=== PATIENT | female | born 1990 | race Two or more races ===

== ENCOUNTER 2017-06-30 18:37 | Emergency (ER) | payer OTHER ==
[~2017-06-30] VITALS: Ht 152.4 cm; Wt 69.4 kg
--- NOTE | 2017-06-30 18:53 | Emergency Room Report ---
History of Present Illness General Chief Complaint: Constipation Source: Patient Present Illness HPI 27-year-old female patient presents ER complaining of constipation 1 week. Patient reports a history of constipation. Patient reports she is not taking any medication for the treatment of constipation at this time. Reports last bowel movement was today, states that it was "small and not a lot of stool" was present. Also complains of intermittent bright red blood on her stool with straining. Reports no blood on bowel movement today. Reports she has never been diagnosed with hemorrhoids. Denies other acute symptoms. Denies fever, chest pain, shortness of breath, diarrhea, dysuria, hematuria. Patient denies recent weight loss, fever. Allergies: Coded Allergies: No Known Allergies (Unverified , 06/30/17) Patient History Past Medical History: see triage record Last Menstrual Period: 01/02 Reviewed Nursing Documentation: PMH: Agreed; PSxH: Agreed Nursing Documentation-PMH Past Medical History: No History, Except For Review of Systems All Other Systems: negative except mentioned in HPI Physical Exam Vital Signs Date Time Temp Pulse Resp B/P (MAP) Pulse Ox O2 Delivery O2 Flow Rate FiO2 06/30/17 18:41 98.8 96 18 144/90 98 Room Air 98.8 Sp02 EP Interpretation: reviewed, normal General Appearance: well appearing, no apparent distress, alert, GCS 15, non- toxic Head: normocephalic, atraumatic Eyes: bilateral eye normal inspection, bilateral eye PERRL ENT: hearing grossly normal, normal pharynx, no angioedema, normal voice, uvula midline, moist mucus membranes Neck: full range of motion Respiratory: lungs clear, normal breath sounds, no rhonchi, no respiratory distress, no accessory muscle use, no wheezing, speaking full sentences Cardiovascular #1: regular rate, rhythm, no edema Rectal: other - no hemorrhoids, no anal fissure Genitourinary: no CVA tenderness Musculoskeletal: back normal, digits/nails normal, gait/station normal, normal range of motion, non-tender Neurologic: alert, oriented x3, responsive, motor strength/tone normal, sensory intact Psychiatric: mood/affect normal Medical Decision Making PA Attestation Dr. Esposito is my supervising Physician whom patient management has been discussed with. Diagnostic Impression: Primary Impression: Constipation ER Course Pt presents to ED c/o generalized abdominal pain. DDX considered but are not limited to cystitis, pyelonephritis, constipation. Low suspicion for appendicitis, no TTP at McBurney's point, negative Rovsing sign. VITAL SIGNS are WNL, patient is afebrile. ED INTERVENTIONS: Acetaminophen for pain. ER COURSE PE benign, no tenderness to palpation, does not require imaging at this time. Patient denies dysuria, hematuria, low suspicion for UTI, does not require UA at this time. No visible hemorrhoids or anal fissure. Patient instructed to drink plenty of fluids, high-fiber diet. Will provide treatment for patient for constipation. follow-up with primary care provider and discuss referral to GI as needed. Discuss further imaging at that time to rule out underlying pathology. Patient is resting comfortably in chair, nontoxic appearing, in no acute distress. DISCHARGE: -Rx provided for Lactulose -Rx Provided for Tylenol Will provide with patient care instructions and any necessary prescriptions. Patient understands and agrees to treatment plan. Patient encouraged to drink plenty of fluids. Patient to take medication as instructed. Care plan and follow-up instructions provided. Patient questions asked and answered. Patient instructed to follow-up with waste management recycling technician in 3 - 5 days. ER precautions given. Patient instructed to return to ER immediately for any new or worsening of symptoms. Including but not limited to fever, worsening pain , intractable vomiting. - Please note that this Emergency Department Report was dictated using [employer] worker apprentice technology software, occasionally this can lead to erroneous entry secondary to interpretation by the dictation equipment. Last Vital Signs Date Time Temp Pulse Resp B/P (MAP) Pulse Ox O2 Delivery O2 Flow Rate FiO2 06/30/17 18:41 98.8 96 18 144/90 98 Room Air 98.8 Disposition: HOME, SELF-CARE Condition: Stable Scripts Acetaminophen* (TYLENOL EXTRA STRENGTH*) 500 Mg Tablet 500 MG ORAL Q8H PRN for Prn Headache/Temp > 101, #30 TAB 0 Refills Prov: Palomo Chiang.Kerri 06/30/17 Lactulose (LACTULOSE) 10 Gm/15 Ml Solution 10 GM PO DAILY for 5 Days, #80 ML Prov: Palomo Chiang.A. 06/30/17 Patient Instructions: Constipation, Adult Additional Instructions: Followup with primary care provider in 3 -5 days. Discuss further treatment and referral as needed to rule out underlying pathology. Drink plenty of fluids. Take medications as directed. Patient questions asked and answered. ER precautions given, patient instructed to return to ER immediately for any new or worsening of symptoms. Palomo Chiang June 30, 2017 18:53
[2017-06-30] MEDS ORDERED: LACTULOSE10 GM/155 PO (18:57)
[2017-06-30] MEDS ORDERED: TYLENOL EXTRA500 MG ORAL (19:13)
[2017-06-30] MEDS ORDERED: Acetaminophen 500mg (ES) tab ORAL ONE (19:15)
[2017-06-30 19:20] VITALS: BP 138/90
[2017-06-30 19:34] VITALS: BP 138/90
== END 2017-06-30 19:35 | disposition home or self-care (01) ==
LOC: EMR 18:50
DX: K59.00 Constipation, unspecified (principal)
CPT/HCPCS: 99284